=== PATIENT | female | born 1975 | race American Indian/Alaskan Native ===

== ENCOUNTER 2017-06-18 06:07 | Emergency (ER) | payer SELFPAY ==
[2017-06-18 07:06] LABS: Hematocrit 40.7 % (30.3-42.9); Hemoglobin 13.3 gm/dl (10.1-14.3); Mean Corpuscular HGB Conc 33 % (30-34); Mean Corpuscular Hemoglobin 28 pg (28-32); Mean Corpuscular Volume 84 fl (79-97); Platelet Count 320 K/mm3 (140-440); Red Blood Count 4.85 M/mm3 (3.65-5.03); Red Cell Distribution Width 13.8 % (13.2-15.2)
[2017-06-18 07:24] LABS: BUN/Creatinine Ratio 14; Blood Urea Nitrogen 10 mg/dL (7-17); Calcium 9.4 mg/dL (8.4-10.2); Hemolysis Index 5
[2017-06-18 07:34] LABS: Free T4 (Free Thyroxine) 1.12 ng/dL (0.76-1.46)
[2017-06-18 07:49] LABS: Basophils # (Auto) 0.1 K/mm3 (0.0-0.1); Basophils % (Auto) 1.2 % (0.0-1.8); Eosinophils # (Auto) 0.3 K/mm3 (0.0-0.4); Lymphocytes % (Auto) 26.7 % (13.4-35.0); Monocytes # (Auto) 0.6 K/mm3 (0.0-0.8); Monocytes % (Auto) 7.5 % (0.0-7.3)
--- NOTE | 2017-06-18 09:34 | Cat Scan Report ---
CT NECK WITH CONTRAST: HISTORY: Pain and swelling. TECHNIQUE: Helical CT following IV contrast. Sagittal and coronal reformatted images. FINDINGS: The parotid and submandibular glands are normal. The carotid sheaths are intact. There is no evidence of adenopathy within the neck. The thyroid gland is normal. The glottic structures are normal. The airway is patent. Strap musculature is unremarkable. Hyoid bone and thyroid cartilage are intact. IMPRESSION: Unremarkable CT neck.
[2017-06-18 12:08] VITALS: BP 113/67
[2017-06-18] MEDS ORDERED: NORCO 7.5/325 PO ONE (12:18)
[2017-06-18] MEDS ORDERED: MOTRIN PO ONE (12:18)
--- NOTE | 2017-06-18 12:23 | Emergency Department Report ---
ED Neck Pain HPI Chief Complaint: Neck Pain/Injury Stated Complaint: NECK PAIN Time Seen by Provider: 06/18/17 11:59 Duration: approximate one-month Neck Pain Location: Anterior Neck (bilateral) Severity: moderate Mechanism: Other (patient states that she has had some progressive swelling to the bilateral anterior neck. There is pain associated with the swelling. Patient states she has times where she feels as though is cutting off her airway. The patient states when she is pressing on this area feels better and is worse when she takes her hands off.) Symptoms: No Pain with Movement, No Radiation to Left Upper Ext, No Radiation to Right Upper Ext, No Numbness, No Weakness, No Previous History Other History: Patient is denying any fevers chills nausea vomiting diarrhea or cough sore throat this time. ED Review of Systems ROS: Stated complaint: NECK PAIN Other details as noted in HPI Comment: All other systems reviewed and negative ED Past Medical Hx - Past Medical History Previous Medical History?: No Hx Psychiatric Treatment: Yes (bipolar, schziophrenia) - Surgical History Past Surgical History?: Yes Additional Surgical History: hysterectomy 2003 - Social History Smoking Status: Current Every Day Smoker Substance Use Type: None - Medications Home Medications: Home Medications Medication Instructions Recorded Confirmed Last Taken Type HYDROcodone/APAP 7.5-325 [[place] 1 each PO ONCE #12 tablet 06/18/17 Unknown Rx 7.5-325 mg TAB] Ibuprofen [Motrin 800 MG tab] 800 mg PO ONCE #20 tablet 06/18/17 Unknown Rx Neck Pain Exam - Exam General: Vital signs noted. No distress. Alert and acting appropriately. HEENT: No Facial Pain, No Scalp Tenderness, No Contusion, No Abrasion, No Laceration Neck Pain: No Midline Tenderness (patient has some mild swelling and tenderness to the bilateral thyroid region), No Right Paraspinal Tenderness, No Left Paraspinal Tenderness, No Right Trapezius Tenderness, No Left Trapezius Tenderness, No Pain with Rotation Right, No Pain with Rotation Left, No Pain with Extension, No Pain with Flexion, No pain with R Lateral Flexion, No Pain with L Lateral Flexion Chest: Yes Clear Lung Sounds, No Pain with Respirations Heart: Yes Regular, No Murmur Back: No Thoracic Tenderness, No Lumbar Tenderness Neuro: No Numbness, No Weakness, No Normal Reflexes, No Radicular Deficits ED Course Vital Signs 0306/18/17 06/18/17 06:07 06:15 12:07 Temperature 98.2 F 98.2 F 98.2 F Pulse Rate 99 H 80 75 Respiratory 18 18 16 Rate Blood Pressure 112/74 112/74 Blood Pressure 113/67 [Left] O2 Sat by Pulse 100 100 100 Oximetry ED Medical Decision Making - Lab Data Result diagrams: 06/18/17 06:50 06/18/17 06:50 - Radiology Data Radiology results: report reviewed Unremarkable CT of the neck. The parotid and submandibular glands are normal. The carotid sheaths are intact. Is no evidence of adenopathy within the neck. The thyroid gland is normal. The glottic structures are normal. The airway is patent. Strep musculature is unremarkable. I will point and thyroid cartilage are intact. - Medical Decision Making Patient will be referred to primary care for possibility of a thyroid ultrasound since we were unable to see anything on her CT. Patient was given pain meds for symptomatic releif Critical care attestation.: If time is entered above; I have spent that time in minutes in the direct care of this critically ill patient, excluding procedure time. ED Disposition Clinical Impression: Neck pain Disposition: DC-01 TO HOME OR SELFCARE Is pt being admited?: No Does the pt Need Aspirin: No Condition: Stable Additional Instructions: Please follow up with primary care physician provided. Additional studies that may need to be ordered are thyroid ultrasound. Prescriptions: HYDROcodone/APAP 7.5-325 [[place] 7.5-325 mg TAB] 1 each PO ONCE #12 tablet Ibuprofen [Motrin 800 MG tab] 800 mg PO ONCE #20 tablet Referrals: OLYA YOUNG MD [Staff Physician] - 3-5 Days
== END 2017-06-18 12:26 | disposition home or self-care (01) ==
LOC: ED 06:07
DX: M54.2 Cervicalgia (principal); F31.9 Bipolar disorder, unspecified; F20.9 Schizophrenia, unspecified
CPT/HCPCS: 36415; 70491; 80048; 84439; 84443; 84703; 85025; 99284; Q9967

== ENCOUNTER 2019-04-03 17:10 | Emergency (ER) | payer OTHER ==
[2019-04-03 19:40] VITALS: BP 117/73
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
[2019-04-03] MEDS ORDERED: CYCLOBENZAPRINE 10 MG TAB PO ONE (21:55)
[2019-04-03] MEDS ORDERED: IBUPROFEN 600 MG TAB PO ONE (21:55)
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
== END 2019-04-03 22:25 | disposition home or self-care (01) ==
LOC: ED 17:10
DX: S16.1XXA Strain of muscle, fascia and tendon at neck level, initial encounter (principal); S39.012A Strain of muscle, fascia and tendon of lower back, initial encounter; R51 Headache; F31.9 Bipolar disorder, unspecified; F20.9 Schizophrenia, unspecified; F17.200 Nicotine dependence, unspecified, uncomplicated; V49.59XA Passenger injured in collision with other motor vehicles in traffic accident, initial encounter; Y93.89 Activity, other specified; Y92.488 Other paved roadways as the place of occurrence of the external cause; Y99.8 Other external cause status
CPT/HCPCS: 72040; 72100; 99283

== ENCOUNTER 2020-02-25 01:37 | Emergency (ER) | payer SELFPAY ==
[2020-02-25] MEDS ORDERED: KETOROLAC 60 MG/2 ML INJ IM ONE (08:56)
[2020-02-25] MEDS ORDERED: CYCLOBENZAPRINE 10 MG TAB PO ONE (08:56)
--- NOTE | 2020-02-25 09:23 | Emergency Department Report ---
ED General Adult HPI - General Chief complaint: Back Pain/Injury Stated complaint: BACK PAIN Time Seen by Provider: 02/25/20 08:41 Source: patient Mode of arrival: Ambulatory Limitations: No Limitations - History of Present Illness Initial comments: Patient is a 44-year-old female presents emergency room with complaints of right-sided middle back pain that began yesterday. She states that she was at work and was reaching for something in the freezer when she felt a pulling and spasming sensation to the right upper back just below the scapula. She denies any fall or specific injury. She denies any numbness or weakness. She states that she is also been having right upper quadrant abdominal pain since yesterday and has associated nausea. She denies any fever, vomiting, diarrhea, cough, shortness of breath, urinary symptoms. No past medical history. No allergies to medications. She states that she had a partial hysterectomy. Severity scale (0 -10): 10 - Related Data Previous Rx's Medication Instructions Recorded Last Taken Type HYDROcodone/APAP 7.5-325 [[place] 1 each PO ONCE #12 tablet 06/18/17 Unknown Rx 7.5-325 mg TAB] Ibuprofen [Motrin 800 MG tab] 800 mg PO ONCE #20 tablet 06/18/17 Unknown Rx Cyclobenzaprine [Flexeril] 10 mg PO QHS PRN #10 tablet 04/03/19 Unknown Rx Naproxen [EC-Naprosyn] 500 mg PO BID PRN #14 tablet. 04/03/19 Unknown Rx Famotidine [Pepcid] 40 mg PO QHS #14 tablet 02/25/20 Unknown Rx Menthol/Camphor [[place] 1 applicatio TP BID #8 oint...g. 02/25/20 Unknown Rx Ointment] Naproxen [EC-Naprosyn] 500 mg PO BID PRN #14 tablet. 02/25/20 Unknown Rx methOCARBAMOL [Robaxin TAB] 500 mg PO BID PRN #14 tab 02/25/20 Unknown Rx traMADoL [Ultram 50 MG tab] 50 mg PO Q6HR PRN #10 tablet 02/25/20 Unknown Rx Allergies Allergy/AdvReac Type Severity Reaction Status Date / Time No Known Allergies Allergy Verified 04/03/19 17:26 ED Review of Systems ROS: Stated complaint: BACK PAIN Other details as noted in HPI Comment: All other systems reviewed and negative ED Past Medical Hx - Past Medical History Previous Medical History?: No Hx Psychiatric Treatment: Yes (bipolar, schziophrenia) - Surgical History Past Surgical History?: No Additional Surgical History: hysterectomy 2003 - Social History Smoking Status: Never Smoker Substance Use Type: None - Medications Home Medications: Home Medications Medication Instructions Recorded Confirmed Last Taken Type HYDROcodone/APAP 7.5-325 [[place] 1 each PO ONCE #12 tablet 06/18/17 Unknown Rx 7.5-325 mg TAB] Ibuprofen [Motrin 800 MG tab] 800 mg PO ONCE #20 tablet 06/18/17 Unknown Rx Cyclobenzaprine [Flexeril] 10 mg PO QHS PRN #10 tablet 04/03/19 Unknown Rx Naproxen [EC-Naprosyn] 500 mg PO BID PRN #14 tablet. 04/03/19 Unknown Rx Famotidine [Pepcid] 40 mg PO QHS #14 tablet 02/25/20 Unknown Rx Menthol/Camphor [[place] 1 applicatio TP BID #8 oint...g. 02/25/20 Unknown Rx Ointment] Naproxen [EC-Naprosyn] 500 mg PO BID PRN #14 tablet. 02/25/20 Unknown Rx methOCARBAMOL [Robaxin TAB] 500 mg PO BID PRN #14 tab 02/25/20 Unknown Rx traMADoL [Ultram 50 MG tab] 50 mg PO Q6HR PRN #10 tablet 02/25/20 Unknown Rx ED Physical Exam - General Limitations: No Limitations General appearance: alert, in no apparent distress - Head Head exam: Present: atraumatic, normocephalic - Eye Eye exam: Present: normal appearance - ENT ENT exam: Present: mucous membranes moist - Neck Neck exam: Present: normal inspection, full ROM. Absent: tenderness - Respiratory Respiratory exam: Present: normal lung sounds bilaterally. Absent: respiratory distress, wheezes, rales, rhonchi, stridor, chest wall tenderness, accessory muscle use, decreased breath sounds, prolonged expiratory - Cardiovascular Cardiovascular Exam: Present: regular rate, normal rhythm, normal heart sounds. Absent: systolic murmur, diastolic murmur, rubs, gallop - GI/Abdominal GI/Abdominal exam: Present: soft, tenderness (RUQ), normal bowel sounds. Absent: distended, guarding, rebound, rigid - Back Exam Back exam: Present: normal inspection, full ROM, paraspinal tenderness (right sided thoracic paraspinal muscular ttp, no midline C-spine, T-spine or L-spine ttp, no step offs, no deformities). Absent: vertebral tenderness - Neurological Exam Neurological exam: Present: alert, oriented X3, CN II-XII intact, normal gait. Absent: motor sensory deficit - Psychiatric Psychiatric exam: Present: normal affect, normal mood - Skin Skin exam: Present: warm, dry, intact ED Course Vital Signs 02/25/20 02/25/20 03:28 09:15 Temperature 98.2 F 98.1 F Pulse Rate 83 72 Respiratory 17 18 Rate Blood Pressure 101/64 Blood Pressure 117/62 [Right] O2 Sat by Pulse 100 100 Oximetry ED Medical Decision Making - Lab Data Result diagrams: 02/25/20 09:51 02/25/20 09:51 Lab Results 02/25/20 02/25/20 02/25/20 Range/Units 09:51 09:51 09:51 WBC 6.0 (4.5-11.0) K/mm3 RBC 4.47 (3.65-5.03) M/mm3 Hgb 12.0 (10.1-14.3) gm/dl Hct 36.8 (30.3-42.9) % MCV 82 (79-97) fl MCH 27 L (28-32) pg MCHC 33 (30-34) % RDW 14.5 (13.2-15.2) % Plt Count 365 (140-440) K/mm3 Lymph % (Auto) 44.3 H (13.4-35.0) % [place] % (Auto) 8.9 H (0.0-7.3) % Eos % (Auto) 2.3 (0.0-4.3) % Baso % (Auto) 0.6 (0.0-1.8) % Lymph # (Auto) 2.6 (1.2-5.4) K/mm3 [place] # (Auto) 0.5 (0.0-0.8) K/mm3 Eos # (Auto) 0.1 (0.0-0.4) K/mm3 Baso # (Auto) 0.0 (0.0-0.1) K/mm3 Seg Neutrophils % 43.9 (40.0-70.0) % Seg Neutrophils # 2.6 (1.8-7.7) K/mm3 Sodium 139 (137-145) mmol/L Potassium 3.9 (3.6-5.0) mmol/L Chloride 105.7 (98-107) mmol/L Carbon Dioxide 27 (22-30) mmol/L Anion Gap 10 mmol/L BUN 7 (7-17) mg/dL Glucose 95 (65-100) mg/dL Calcium 9.4 (8.4-10.2) mg/dL Total Bilirubin 0.50 (0.1-1.2) mg/dL AST 13 (5-40) units/L ALT 12 (7-56) units/L Alkaline Phosphatase 90 (35-129) units/L Total Protein 7.3 (6.3-8.2) g/dL Albumin 4.3 (3.9-5) g/dL Albumin/Globulin Ratio 1.4 % Lipase 60 (13-60) units/L Urine Color (Yellow) Urine Turbidity (Clear) Urine pH (5.0-7.0) Ur Specific [place] (1.003-1.030) Urine Protein (Negative) mg/dL Urine Glucose (UA) (Negative) mg/dL Urine Ketones (Negative) mg/dL Urine Blood (Negative) Urine Nitrite (Negative) Urine Bilirubin (Negative) Urine Urobilinogen (<2.0) mg/dL Ur Leukocyte Esterase (Negative) Urine WBC (Auto) (0.0-6.0) /HPF Urine RBC (Auto) (0.0-6.0) /HPF U Epithel Cells (Auto) (0-13.0) /HPF Urine Mucus /HPF // Range/Units Unknown WBC (4.5-11.0) K/mm3 RBC (3.65-5.03) M/mm3 Hgb (10.1-14.3) gm/dl Hct (30.3-42.9) % MCV (79-97) fl MCH (28-32) pg MCHC (30-34) % RDW (13.2-15.2) % Plt Count (140-440) K/mm3 Lymph % (Auto) (13.4-35.0) % [place] % (Auto) (0.0-7.3) % Eos % (Auto) (0.0-4.3) % Baso % (Auto) (0.0-1.8) % Lymph # (Auto) (1.2-5.4) K/mm3 [place] # (Auto) (0.0-0.8) K/mm3 Eos # (Auto) (0.0-0.4) K/mm3 Baso # (Auto) (0.0-0.1) K/mm3 Seg Neutrophils % (40.0-70.0) % Seg Neutrophils # (1.8-7.7) K/mm3 Sodium (137-145) mmol/L Potassium (3.6-5.0) mmol/L Chloride (98-107) mmol/L Carbon Dioxide (22-30) mmol/L Anion Gap mmol/L BUN (7-17) mg/dL Glucose (65-100) mg/dL Calcium (8.4-10.2) mg/dL Total Bilirubin (0.1-1.2) mg/dL AST (5-40) units/L ALT (7-56) units/L Alkaline Phosphatase (35-129) units/L Total Protein (6.3-8.2) g/dL Albumin (3.9-5) g/dL Albumin/Globulin Ratio % Lipase (13-60) units/L Urine Color Yellow (Yellow) Urine Turbidity Clear (Clear) Urine pH 7.0 (5.0-7.0) Ur Specific [place] 1.012 (1.003-1.030) Urine Protein <15 mg/dl (Negative) mg/dL Urine Glucose (UA) Neg (Negative) mg/dL Urine Ketones Neg (Negative) mg/dL Urine Blood Neg (Negative) Urine Nitrite Neg (Negative) Urine Bilirubin Neg (Negative) Urine Urobilinogen < 2.0 (<2.0) mg/dL Ur Leukocyte Esterase Neg (Negative) Urine WBC (Auto) 1.0 (0.0-6.0) /HPF Urine RBC (Auto) 2.0 (0.0-6.0) /HPF U Epithel Cells (Auto) 1.0 (0-13.0) /HPF Urine Mucus Few /HPF - Radiology Data Radiology results: report reviewed Ordering Physician: TING PARR Date of Service: 02/25/20 Procedure(s): US abdomen limited Accession Number(s): [id number] cc: TING PARR ULTRASOUND ABDOMEN, LIMITED (RIGHT UPPER QUADRANT) INDICATION: RUQ pain. COMPARISON: None available. FINDINGS: Pancreas: Visualized portion shows no significant abnormality. Liver: Normal. Gallbladder: Normal. Bile ducts: Normal. Common Bile Duct measures 3.3 mm. Free fluid: None. Additional Findings: None. IMPRESSION: 1. No sonographic abnormality of the right upper quadrant. Signer Name: Arnold Villatoro MD Signed: 02/25/2020 9:37 AM Workstation Name: [id number] Transcribed By: WG Dictated By: Arnold Villatoro MD Electronically Authenticated By: Arnold Villatoro MD Signed Date/Time: 02/25/20936 DD/ 6 TD/TT: - Medical Decision Making Patient is a 44-year-old female presents emergency room with complaints of right-sided middle back pain that began yesterday. She states that she was at work and was reaching for something in the freezer when she felt a pulling and spasming sensation to the right upper back just below the scapula. She denies any fall or specific injury. She denies any numbness or weakness. She states that she is also been having right upper quadrant abdominal pain since yesterday and has associated nausea. She denies any fever, vomiting, diarrhea, cough, shortness of breath, urinary symptoms. No past medical history. No allergies to medications. She states that she had a partial hysterectomy. Vitals are normal. On exam:right sided thoracic paraspinal muscular ttp, no midline C- spine, T-spine or L-spine ttp, no step offs, no deformities, no winging of the scapula, no focal neuro deficits, right upper quadrant abdominal tenderness on exam, no guarding, no rebound, no rigidity, normal bowel sounds, no peritoneal signs, negative Hahn sign. US RUQ: 1. No sonographic abnormality of the right upper quadrant. labs are WNL. UA is WNL. Patient given pain medications while in the emergency department as she did not drive and symptoms improved. Abdominal discomfort could be due to PUD or GERD, do not suspect cholecystitis. Back pain is likely secondary to muscle spasm/muscle strain, she has no midline tenderness, no step-offs, no deformities, no focal neuro deficits. she is not having any CP, SOB, diaphoresis, vomiting, elevation in HR or BP, no hypoxia, she is PERC criteria negative for PE. she does not have any clinical signs of PNA, her lungs are clear bilaterally, no cough, no fever, no SOB. Patient given prescription for Robaxin, tramadol, naproxen, pepcid, [place] balm ointment. advised patient to please take medication as prescribed as needed. Do not drive or operate heavy machinery while taking muscle relaxer or pain medication. Follow-up with a primary care doctor in the next 2 days for reexamination. Return to emergency room for any new or worsening symptoms. - Differential Diagnosis Muscle strain/spasm, DDD, bulging disc, cholelithiasis, cholecystitis, gas Critical care attestation.: If time is entered above; I have spent that time in minutes in the direct care of this critically ill patient, excluding procedure time. ED Disposition Clinical Impression: Acute thoracic myofascial strain Qualifiers: Encounter type: initial encounter Qualified Code(s): S29.019A - Strain of muscle and tendon of unspecified wall of thorax, initial encounter Abdominal pain Qualifiers: Abdominal location: right upper quadrant Qualified Code(s): R10.11 - Right upper quadrant pain Disposition: DC-01 TO HOME OR SELFCARE Is pt being admited?: No Does the pt Need Aspirin: No Condition: Stable Instructions: Abdominal Pain, Adult, Muscle Strain, [id number] Additional Instructions: please take medication as prescribed as needed. Do not drive or operate heavy machinery while taking muscle relaxer or pain medication. Follow-up with a primary care doctor in the next 2 days for reexamination. Return to emergency room for any new or worsening symptoms. Prescriptions: Famotidine [Pepcid] 40 mg PO QHS #14 tablet Naproxen [EC-Naprosyn] 500 mg PO BID PRN #14 tablet. PRN Reason: pain methOCARBAMOL [Robaxin TAB] 500 mg PO BID PRN #14 tab PRN Reason: pain Menthol/Camphor [[place] Ointment] 1 applicatio TP BID #8 oint...g. traMADoL [Ultram 50 MG tab] 50 mg PO Q6HR PRN #10 tablet PRN Reason: Pain , Severe (7-10) Referrals: PRIMARY CAREMD [Primary Care Provider] - 2-3 Days STAN LEBRON MD [Staff Physician] - 2-3 Days [facility] [Provider Group] - 2-3 Days Forms: Work/School Release Form(ED) Time of Disposition: 11:46 Print Language: SLOVAK
[2020-02-25 09:24] LABS: Bilirubin,Urine NEG (Negative); Blood,Urine NEG (Negative); Color,Urine Yellow (Yellow); Mucus,Urine FEW /HPF; Protein,Urine <15 mg/dL mg/dL (Negative); Urobilinogen,Urine < 2.0 mg/dL (<2.0)
--- NOTE | 2020-02-25 09:43 | Ultrasound Report ---
ULTRASOUND ABDOMEN, LIMITED (RIGHT UPPER QUADRANT) INDICATION: RUQ pain. COMPARISON: None available. FINDINGS: Pancreas: Visualized portion shows no significant abnormality. Liver: Normal. Gallbladder: Normal. Bile ducts: Normal. Common Bile Duct measures 3.3 mm. Free fluid: None. Additional Findings: None. IMPRESSION: 1. No sonographic abnormality of the right upper quadrant. Signer Name: Arnold Villatoro MD Signed: 02/25/2020 9:37 AM Workstation Name: [id number]
[2020-02-25 09:56] VITALS: BP 117/62
[2020-02-25] MEDS ORDERED: MORPHINE 4 MG/1 ML INJ IM ONE (10:15)
[2020-02-25 10:48] LABS: Basophils % (Auto) 0.6 % (0.0-1.8); Eosinophils # (Auto) 0.1 K/mm3 (0.0-0.4); Eosinophils % (Auto) 2.3 % (0.0-4.3); Hematocrit 36.8 % (30.3-42.9); Lymphocytes # (Auto) 2.6 K/mm3 (1.2-5.4); Lymphocytes % (Auto) 44.3 % (13.4-35.0); Mean Corpuscular HGB Conc 33 % (30-34); Mean Corpuscular Volume 82 fl (79-97); Monocytes # (Auto) 0.5 K/mm3 (0.0-0.8); Monocytes % (Auto) 8.9 % (0.0-7.3); Platelet Count 365 K/mm3 (140-440); Red Blood Count 4.47 M/mm3 (3.65-5.03); Red Cell Distribution Width 14.5 % (13.2-15.2)
[2020-02-25 11:35] LABS: Alanine Aminotransferase 12 units/L (7-56); Albumin 4.3 g/dL (3.9-5); Blood Urea Nitrogen 7 mg/dL (7-17); Calcium 9.4 mg/dL (8.4-10.2); Hemolysis Index 2
[2020-02-25 11:49] LABS: BUN/Creatinine Ratio 12
== END 2020-02-25 12:40 | disposition home or self-care (01) ==
LOC: ED 01:37
DX: S29.019A Strain of muscle and tendon of unspecified wall of thorax, initial encounter (principal); R10.11 Right upper quadrant pain; F25.0 Schizoaffective disorder, bipolar type; Z98.890 Other specified postprocedural states; Z79.899 Other long term (current) drug therapy; X58.XXXA Exposure to other specified factors, initial encounter; Y93.89 Activity, other specified; Y92.89 Other specified places as the place of occurrence of the external cause; Y99.8 Other external cause status
CPT/HCPCS: 36415; 76705; 80053; 81001; 83690; 85025; 96372; 99284; J1885; J2270